=== PATIENT | female | born 1990 | race African-American/Black ===

== ENCOUNTER 2019-02-28 10:34 | Emergency (ER) | payer OTHER, SELFPAY ==
[~2019-02-28] VITALS: Ht 165.1 cm; Wt 61.0 kg
[~2019-02-28 10:34] MED LIST: LISINOPRIL
[2019-02-28 10:54] VITALS: BP 104/65
== END 2019-02-28 12:11 | disposition home or self-care (01) ==
LOC: ER 10:34
DX: F41.1 Generalized anxiety disorder (principal); F43.0 Acute stress reaction; Z56.6 Other physical and mental strain related to work
CPT/HCPCS: 99284

== ENCOUNTER 2019-06-19 00:40 | Emergency (ER) | payer SELFPAY ==
[~2019-06-19] VITALS: Ht 165.1 cm; Wt 66.3 kg
[2019-06-19] MEDS ORDERED: ONDANSETRON 4MG ODT PO STA (02:17)
[2019-06-19 02:40] LABS: HEMATOCRIT. 27.2 % (36.0-48.0); HEMOGLOBIN. 7.8 g/dL (12.0-16.0); MEAN CORPUSCULAR HEMOGLOBIN 18.1 pg (28.0-32.0); MEAN CORPUSCULAR VOLUME 62.5 fL (81.0-99.0); MEAN PLATELET VOLUME 9.1 fl (7.4-10.4); PLATELET 282 x1000/uL (130-400); RED BLOOD CELL COUNT 4.35 mill/uL (4.2-5.4); RED CELL DISTRIBUTION WIDTH 18.8 % (11.6-14.6)
[2019-06-19 02:46] LABS: CHLORIDE 109 mEq/L (98-107)
[2019-06-19 02:55] LABS: ETHANOL BLOOD < 10 mg/dL
[2019-06-19 02:56] LABS: CLARITY URINE CLOUDY (CLEAR); COLOR URINE YELLOW (YELLOW); KETONES URINE TRACE (NEGATIVE); LEUKOCYTE ESTERASE URINE 3+ (NEGATIVE); NITRITE URINE POSITIVE (NEGATIVE); OCCULT BLOOD URINE 2+ (NEGATIVE); PH URINE 6.5 (4.5-8.0); PROTEIN URINE 3+ (NEGATIVE); SPECIFIC GRAVITY URINE 1.013 (1.005-1.030); UROBILINOGEN URINE 0.2 E.U./dL (0.2-1.0)
[2019-06-19 02:57] LABS: BETA HYDROXYBUTYRATE 0.1 mMol/L (0.0-0.3)
[2019-06-19 03:06] LABS: *BARBITURATES SCREEN URINE NEGATIVE (NEGATIVE); *BENZODIAZEPINES SCREEN URINE NEGATIVE (NEGATIVE); *COCAINE SCREEN URINE NEGATIVE (NEGATIVE); METHADONE URINE SCREEN NEGATIVE (NEGATIVE)
[2019-06-19 03:07] LABS: *AMPHETAMINES SCREEN URINE NEGATIVE (NEGATIVE); OPIATES URINE SCREEN NEGATIVE (NEGATIVE); PHENCYCLIDINE URINE SCREEN NEGATIVE (NEGATIVE)
[2019-06-19 03:09] LABS: CANNABINOID URINE SCREEN PRESUMTIVE POSITIVE (NEGATIVE)
[2019-06-19 04:00] LABS: PLATELET ESTIMATE NORMAL
[2019-06-19] MEDS ORDERED: CEPHALEXIN 250MG CAPSULE PO SCH (05:30)
[2019-06-19 06:01] VITALS: BP 115/78
== END 2019-06-19 06:11 | disposition home or self-care (01) ==
LOC: ER 00:40
DX: N39.0 Urinary tract infection, site not specified (principal); I10 Essential (primary) hypertension; F17.200 Nicotine dependence, unspecified, uncomplicated
CPT/HCPCS: 36415; 71045; 80053; 80305; 80320; 81003; 81025; 82010; 83690; 85025; 87077; 87086; 87186; 99284; Q0162; G0480

== ENCOUNTER 2020-02-19 11:27 | Emergency (ER) | payer SELFPAY ==
[~2020-02-19] VITALS: Ht 165.1 cm; Wt 70.0 kg
[2020-02-19] MEDS ORDERED: DEXAMETHASONE 4MG/ML 1ML VIAL IM ONE (12:15)
[2020-02-19] MEDS ORDERED: PENICILLIN G BENZATHINE 1,200,000 UNITS/2ML SYR IM ONE (12:15)
[2020-02-19] MEDS ORDERED: IBUPROFEN 600MG TABLET PO ONE (12:15)
[2020-02-19 12:55] VITALS: BP 119/78
== END 2020-02-19 13:02 | disposition home or self-care (01) ==
LOC: ER 11:32
DX: J02.9 Acute pharyngitis, unspecified (principal); Z20.828 Contact with and (suspected) exposure to other viral communicable diseases; R50.9 Fever, unspecified; R05 Cough; I10 Essential (primary) hypertension
CPT/HCPCS: 87635; 96372; 99284; C9803; J0561; J1100

== ENCOUNTER 2022-08-10 04:49 | Emergency (ER) | payer MEDICAID ==
[~2022-08-10] VITALS: Ht 162.6 cm; Wt 70.0 kg
[2022-08-10 04:55] VITALS: BP 138/70
[2022-08-10] MEDS ORDERED: TETRACAINE 0.5% OPHTH DROPS 4ML RIGHTEYE ONE ×2 (06:15→07:54)
[2022-08-10] MEDS ORDERED: FLUORESCEIN SODIUM 1MG/STRIP RIGHTEYE ONE ×2 (06:15→07:53)
[2022-08-10] MEDS ORDERED: LIDOCAINE HCL/EPINEPHRINE 1%-EPI 1:100,000 20 ML VIAL INFIL ONE (08:00)
[2022-08-10] MEDS ORDERED: LIDOCAINE HCL/EPINEPHRINE 1%-EPI 1:100,000 10 ML VIAL INFIL SCH (08:15)
[2022-08-10] MEDS ORDERED: TOPUD PO (08:20)
== END 2022-08-10 08:42 | disposition home or self-care (01) ==
LOC: ER 05:07
DX: S01.01XA Laceration without foreign body of scalp, initial encounter (principal); X58.XXXA Exposure to other specified factors, initial encounter; Y93.89 Activity, other specified; Y92.89 Other specified places as the place of occurrence of the external cause; Y99.8 Other external cause status; I10 Essential (primary) hypertension
CPT/HCPCS: 12002; 70486; 81025; 99284; J3490

== ENCOUNTER 2023-06-11 16:22 | Emergency (ER) | payer MEDICAID ==
[~2023-06-11] VITALS: Ht 167.6 cm; Wt 75.0 kg
[~2023-06-11 16:22] MED LIST changes: +TOPUD PO
[2023-06-11 17:13] VITALS: BP 122/86; PULSE 88; RESP 16; TEMP 98.5; O2SAT 100
[2023-06-11 17:19] LABS: BASOPHILS % 0.2 % (0.0-2.0); EOSINOPHILS % 1.9 % (0.0-5.0); HEMATOCRIT. 30.7 % (36.0-48.0); HEMOGLOBIN. 10.1 g/dL (12.0-16.0); LYMPHOCYTES % 21.3 % (20.0-50.0); MEAN CORPUSCULAR HEMOGLOBIN 26.4 pg (28.0-32.0); MEAN CORPUSCULAR VOLUME 80.2 fL (81.0-99.0); MEAN PLATELET VOLUME 9.7 fl (7.4-10.4); MONOCYTES % 8.2 % (2.0-8.0); NEUTROPHILS % 68.4 % (40.0-76.0); PLATELET 175 x1000/uL (130-400); RED BLOOD CELL COUNT 3.83 mill/uL (4.2-5.4); RED CELL DISTRIBUTION WIDTH 18.7 % (11.6-14.6); WHITE BLOOD COUNT 10.1 x1000/uL (4.5-11.0)
[2023-06-11 17:28] LABS: ALBUMIN 3.5 g/dL (3.4-5.0); CHLORIDE 108 mEq/L (98-107); INDEX HEMOLYSI 1 (1-3); INDEX ICTERIC 1 (1-4); INDEX LIPEMIC 1 (1-3); POTASSIUM 3.1 mEq/L (3.5-5.1); SODIUM 139 mEq/L (136-145)
[2023-06-11 17:34] LABS: ALANINE AMINOTRANSFERASE 13 IU/L (13-61); ASPARTATE AMINOTRANSFERASE 13 IU/L (15-37); BILIRUBIN TOTAL 0.3 mg/dL (0.1-1.0); CARBON DIOXIDE 28 mEq/L (21-32); CREATININE 0.9 mg/dL (0.6-1.3); GLUCOSE 96 mg/dL (70-105); PROTEIN TOTAL 7.5 g/dL (6.0-8.3); UREA NITROGEN BLOOD 4 mg/dL (7-21)
[2023-06-11 18:25] LABS: CALCIUM 14.3 mg/dL (8.5-10.1)
== END 2023-06-12 01:47 | disposition home or self-care (01) ==
LOC: ER 16:22
DX: O26.892 Other specified pregnancy related conditions, second trimester (principal); R10.9 Unspecified abdominal pain; Z3A.15 15 weeks gestation of pregnancy
CPT/HCPCS: 36415; 76805; 80053; 85025; 99284